=== PATIENT | male | born 1965 | race Caucasian/White ===

== ENCOUNTER 2018-04-05 07:35 | Day surgery (SDC) | payer OTHER ==
[~2018-04-05] VITALS: Ht 167.6 cm; Wt 77.1 kg
[2018-04-05] MEDS ORDERED: LIDOCAINE 2% 100 MG/5 ML UJET TP ONE (08:36)
[2018-04-05] MEDS ORDERED: KETOROLAC 30 MG/ML VIAL ONE (08:36)
== END 2018-04-05 09:46 | disposition home or self-care (01) ==
LOC: MDS 07:35 → MMU 07:37 → MDS 09:46
PROVIDERS: ATTEND Internal Medicine Gastroenterology
DX: Z12.11 Encounter for screening for malignant neoplasm of colon (principal); D12.3 Benign neoplasm of transverse colon; B18.2 Chronic viral hepatitis C; F17.210 Nicotine dependence, cigarettes, uncomplicated; E66.3 Overweight; Z68.27 Body mass index [BMI] 27.0-27.9, adult; Z90.49 Acquired absence of other specified parts of digestive tract; Z98.890 Other specified postprocedural states; Z72.89 Other problems related to lifestyle
CPT/HCPCS: 45385; 88305; J1885

== ENCOUNTER 2018-04-12 09:34 | Day surgery (SDC) | payer OTHER ==
[~2018-04-12] VITALS: Ht 167.6 cm; Wt 77.1 kg
[2018-04-12] MEDS ORDERED: LIDOCAINE 2% 1000 MG/50 ML VIAL INJ ONE (11:36)
[2018-04-12] MEDS ORDERED: MORPHINE SULFATE 2 MG/ML SYR IVP PRN (13:05)
[2018-04-12] MEDS ORDERED: MORPHINE SULFATE 2 MG/ML SYR IVP ONE (13:11)
== END 2018-04-12 13:50 | disposition home or self-care (01) ==
LOC: MMU 09:34 → MDS 09:34
PROVIDERS: ATTEND Internal Medicine Gastroenterology
DX: B18.2 Chronic viral hepatitis C (principal); E66.3 Overweight; F10.11 Alcohol abuse, in remission; F17.210 Nicotine dependence, cigarettes, uncomplicated; Z90.49 Acquired absence of other specified parts of digestive tract; Z98.890 Other specified postprocedural states; Z68.27 Body mass index [BMI] 27.0-27.9, adult
CPT/HCPCS: 47000; 76942; 88307; 88313; J2001; J2270; Q0092